=== PATIENT | male | born 2000 | race Caucasian/White ===

== ENCOUNTER 2021-03-02 14:36 | Emergency (ER) | payer OTHER ==
[2021-03-02 15:03] LABS: HEMOGLOBIN 15.5 gm/dl (14.0-17.5); RED BLOOD COUNT 4.92 M/UL (4.20-5.50); WHITE BLOOD COUNT 11.3 K/UL (4.5-11.0)
[2021-03-02 15:27] LABS: BUN/CREATININE RATIO 10 (0-10)
== END 2021-03-02 20:38 | disposition home or self-care (01) ==
LOC: ER1 14:36
PROVIDERS: Family Medicine
DX: E87.6 Hypokalemia (principal); F19.10 Other psychoactive substance abuse, uncomplicated; F12.90 Cannabis use, unspecified, uncomplicated
CPT/HCPCS: 80053; 80307; 81001; 82550; 82553; 83690; 83735; 83874; 84439; 84443; 84484; 85025; 93005; 99284

== ENCOUNTER 2021-08-21 19:50 | Emergency (ER) | payer OTHER | END 2021-08-21 22:20 | disposition home or self-care (01) | LOC: ER1 19:50 | DX: J06.9 Acute upper respiratory infection, unspecified (principal); Z20.822 Contact with and (suspected) exposure to COVID-19 | CPT/HCPCS: 0240U; 87081; 87880; 99283 ==

== ENCOUNTER 2022-03-21 18:22 | Emergency (ER) | payer OTHER | END 2022-03-21 20:50 | disposition left against medical advice (07) | LOC: ER1 18:22 | DX: Z53.21 Procedure and treatment not carried out due to patient leaving prior to being seen by health care provider (principal) ==